=== PATIENT | female | born 1950 | race Caucasian/White ===

== ENCOUNTER 2018-09-09 19:01 | Emergency (ER) | payer OTHER ==
[2018-09-09 19:27] VITALS: BP 133/67
--- NOTE | 2018-09-09 19:35 | ED ---
Throat Pain/Nasal Congestion - HPI Summary HPI Summary: 67 yr old female with the complaint of sinus pressure, post nasal drip, coughing. Onset of symptoms a week ago. She has not had fever. She feels like she has a sinus infection. She denies dizziness. She has no other complaints. - History of Current Complaint Chief Complaint: UCRespiratory Time Seen by Provider: 09/09/18 19:28 - Allergies/Home Medications Allergies/Adverse Reactions: Allergies Allergy/AdvReac Type Severity Reaction Status Date / Time Penicillins AdvReac GI Upset Verified 09/09/18 19:22 Home Medications: Home Medications Cholecalciferol TAB* [Vitamin D TAB*] 1,000 unit PO DAILY 09/09/18 [History Confirmed 09/09/18] Glimepiride 1 mg PO DAILY 09/09/18 [History Confirmed 09/09/18] metFORMIN* [Glucophage 850 MG TAB *] 850 mg PO 0800,1700 09/09/18 [History Confirmed 09/09/18] PMH/Surg Hx/FS Hx/Imm Hx Endocrine/Hematology History: Reports: Hx Diabetes Cardiovascular History: Reports: Hx Hypertension, Other Cardiovascular Problems/ Disorders - HTN ON MEDICATION Musculoskeletal History: Reports: Other Musculoskeletal History - ACHILLES TENDON REPAIR Neurological History: Reports: Other Neuro Impairments/Disorders - TREMORS BUT NOT SEEING A PHYSICIAN YET. - Cancer History Hx Radiation Therapy: No - Surgical History Surgery Procedure, Year, and Place: GB 1971; TUBAL 1978; ACHILLES TENDON LEFT LEG 1999. Infectious Disease History: No Infectious Disease History: Denies: History Other Infectious Disease, Traveled Outside the [place] in Last 30 Days - Social History Alcohol Use: Rare Substance Use Type: Reports: None Smoking Status (MU): Heavy Every Day Tobacco Smoker Type: Cigarettes Length of Time of Smoking/Using Tobacco: 40 yrs Review of Systems Positive: Sore Throat, Nasal Discharge Positive: Cough All Other Systems Reviewed And Are Negative: Yes Physical Exam Triage Information Reviewed: Yes Vital Signs On Initial Exam: Initial Vitals Temp Pulse Resp BP Pulse Ox 98 F 85 16 133/67 98 09/09/18 19:22 09/09/18 19:22 09/09/18 19:22 09/09/18 19:22 09/09/18 19:22 Vital Signs Reviewed: Yes Appearance: Positive: Well-Appearing, No Pain Distress Skin: Positive: Warm, Skin Color Reflects Adequate Perfusion Head/Face: Positive: Normal Head/Face Inspection Eyes: Positive: EOMI ENT: Positive: Pharyngeal erythema, Nasal congestion, Nasal drainage, Sinus tenderness Neck: Positive: Nontender Respiratory/Lung Sounds: Positive: Clear to Auscultation, Breath Sounds Present Cardiovascular: Positive: RRR. Negative: Murmur Abdomen Description: Positive: Nontender Musculoskeletal: Positive: Strength/ROM Intact Neurological: Positive: Sensory/Motor Intact, Alert, Oriented to Person Place, Time, CN Intact II-III Psychiatric: Positive: Normal - Falguni Coma Scale Best Eye Response: 4 - Spontaneous Best Motor Response: 6 - Obeys Commands Best Verbal Response: 5 - Oriented Coma Scale Total: 15 Diagnostics - Vital Signs Vital Signs Temp Pulse Resp BP Pulse Ox 09/09/18 19:22 98 F 85 16 133/67 98 - Laboratory Lab Statement: Any lab studies that have been ordered have been reviewed, and results considered in the medical decision making process. EENT Course/Dx - Course Course Of Treatment: 67 yr old with sinusitis. Rx with Biaxin - Diagnoses Provider Diagnoses: Sinusitis Discharge - Sign-Out/Discharge Documenting (check all that apply): Patient Departure All imaging exams completed and their final reports reviewed: No Studies - Discharge Plan Condition: Good Disposition: HOME Prescriptions: Clarithromycin TAB* [Biaxin 500 MG TAB*] 500 mg PO BID #20 tab Patient Education Materials: Sinusitis (ED) Referrals: Virginia Schneider PA [Primary Care Provider] - - Billing Disposition and Condition Condition: GOOD Disposition: Home
== END 2018-09-09 19:41 | disposition home or self-care (01) ==
LOC: UCCORT 19:01
DX: J32.9 Chronic sinusitis, unspecified (principal); Z88.0 Allergy status to penicillin; E11.9 Type 2 diabetes mellitus without complications; Z79.84 Long term (current) use of oral hypoglycemic drugs; I10 Essential (primary) hypertension; F17.210 Nicotine dependence, cigarettes, uncomplicated
CPT/HCPCS: 99212; G0463